=== PATIENT | female | born 1960 | race Two or more races ===

== ENCOUNTER 2024-07-18 00:01 | Emergency (ER) | payer MEDICARE, OTHER ==
[2024-07-18 00:10] VITALS: TEMP 98.4; BMI 35.9
[2024-07-18] MEDS ORDERED: ALBUTEROL SO4 2.5/IPRATROPIUM 0.5 INH SOL 3 ML VIAL.NEB. NEB ONE ×3 (00:15→01:07)
[2024-07-18] MEDS: ALBUTEROL SO4 2.5/IPRATROPIUM 0.5 INH SOL 3 ML VIAL.NEB. NEB SCH (00:37)
[2024-07-18] MEDS ORDERED: predniSONE 20 MG TABLET (UD) ONE (01:28)
[2024-07-18] MEDS: predniSONE 20 MG TABLET (UD) PO ONE (01:44)
[2024-07-18] MEDS ORDERED: ACETAMINOPHEN 325 MG TABLET (FP) ONE (01:48)
[2024-07-18] MEDS ORDERED: LIDOCAINE 5% TOPICAL PATCH ONE (01:49)
[2024-07-18] MEDS: LIDOCAINE 5% TOPICAL PATCH TP ONE (01:55)
[2024-07-18] MEDS: ACETAMINOPHEN 500 MG TABLET (FP) PO ONE (01:57)
[2024-07-18] MEDS ORDERED: DEXAMETHASONE SOD PHOSPHATE 10 MG/1 ML VIAL ONE (03:10)
[2024-07-18] MEDS: DEXAMETHASONE SOD PHOSPHATE 10 MG/1 ML VIAL IM ONE (03:28)
[2024-07-18 03:54] VITALS: RESP 16
[2024-07-18 05:51] VITALS: BP 117/50; PULSE 64
[2024-07-18] MEDS ORDERED: LIDOCAINE PATCH REMOVAL MC SCH (22:00)
== END 2024-07-18 06:21 | disposition home or self-care (01) ==
LOC: JER 00:01
PROC: 3E033GC Introduction of Other Therapeutic Substance into Peripheral Vein, Percutaneous Approach (ICD-10-PCS; principal; 2024-07-18)
PROC: 3E0F7GC Introduction of Other Therapeutic Substance into Respiratory Tract, Via Natural or Artificial Opening (ICD-10-PCS; 2024-07-18)
DX: R06.02 Shortness of breath (principal); R50.9 Fever, unspecified; R05.9 Cough, unspecified; R09.81 Nasal congestion; M79.10 Myalgia, unspecified site; R06.2 Wheezing; Z20.822 Contact with and (suspected) exposure to COVID-19
CPT/HCPCS: 0241U-QW; 71045-TC-FY; 93005; 93010; 94640; 96372; 99285-25; J1100